=== PATIENT | female | born 1945 | race Caucasian/White ===

== ENCOUNTER 2021-02-16 12:37 | Emergency (ER) | payer MEDICARE, OTHER ==
[2021-02-16 13:53] LABS: BASOPHIL 0.6 % (0-2); EOSINOPHIL 1.8 % (0-7); HGB 8.5 g/dl (12.5-16.0); MCH 29.1 pg (25.0-31.0); MCHC 30.4 g/dL (32.0-36.0); MCV 95.9 fL (78.0-100.0); MONOCYTE 10.6 % (0-12); MPV 9.5 fL (6.0-9.5); NEUTROPHIL 65.8 % (41-80); NRBC 0; PLT 245 K/uL (150-400); RBC 2.92 M/uL (4.20-5.40); RDW 15.6 % (11.5-14.0); WBC 4.9 K/uL (4.0-10.5)
[2021-02-16 14:04] LABS: INR 1.2 (0.9-1.2); PROTHROMBIN TIME 14.4 SECONDS (11.4-13.6)
[2021-02-16 14:05] LABS: PTT 31.2 SECONDS (22.2-34.7)
[2021-02-16 14:16] LABS: PRO-BNP 84 pg/mL (<450)
[2021-02-16 14:19] LABS: BILIRUBIN NEGATIVE (NEGATIVE); BLOOD NEGATIVE Ery/uL (NEGATIVE); CLARITY CLEAR (CLEAR); COLOR YELLOW (YELLOW); GLUCOSE (U) NORMAL (NORMAL); LEUKOCYTES NEGATIVE Leu/uL (NEGATIVE); NITRITE NEGATIVE (NEGATIVE); PROTEIN NEGATIVE (NEGATIVE); SPECIFIC GRAVITY 1.025 (1.001-1.030); UROBILINOGEN 0.2 mg/dL (0.2-1.0); pH 5.5 (5.0-9.0)
[2021-02-16 14:20] LABS: ALBUMIN 3.4 g/dL (3.4-5.0); BILIRUBIN - TOTAL 0.2 mg/dL (0.2-1.0); BUN/CREAT RATIO (CALC) 21.3 RATIO; CREATININE 0.89 mg/dL (0.51-0.95); GLOBULIN (CALCULATION) 3.5 g/dL; POTASSIUM 4.8 mmol/L (3.5-5.1); TOTAL PROTEIN 6.9 g/dL (6.4-8.2)
[2021-02-16 14:28] LABS: LACTIC ACID 2.1 mmol/L (0.4-1.9)
[2021-02-16] MEDS ORDERED: DIAZEPAM 5MG TAB5 MG PO (16:07)
== END 2021-02-16 16:18 | disposition home or self-care (01) ==
LOC: FER 12:37
PROVIDERS: Emergency Medicine
DX: D64.9 Anemia, unspecified (principal); R05 Cough; R10.31 Right lower quadrant pain; R10.32 Left lower quadrant pain; Z79.01 Long term (current) use of anticoagulants; Z86.711 Personal history of pulmonary embolism; Z85.42 Personal history of malignant neoplasm of other parts of uterus; Z85.3 Personal history of malignant neoplasm of breast; Z92.3 Personal history of irradiation; Z79.899 Other long term (current) drug therapy; Z88.8 Allergy status to other drugs, medicaments and biological substances
CPT/HCPCS: 36415; 71045; 80053; 81003; 82270; 83605; 83880; 84484; 85025; 85610; 85730; 86850; 86900; 86901; 93005

== ENCOUNTER 2021-04-13 16:03 | Emergency (ER) | payer MEDICARE, OTHER ==
[~2021-04-13 16:03] MED LIST: DIAZEPAM 5MG TAB5 MG PO
[2021-04-13 17:23] LABS: BASOPHIL 0.4 % (0-2); EOSINOPHIL 1.6 % (0-7); HCT 22.6 % (37.0-47.0); HGB 6.6 g/dl (12.5-16.0); LYMPHOCYTE 13.1 % (15-48); MCH 27.3 pg (25.0-31.0); MCHC 29.2 g/dL (32.0-36.0); MCV 93.4 fL (78.0-100.0); MONOCYTE 7.8 % (0-12); NEUTROPHIL 76.4 % (41-80); NRBC 0; PLT 249 K/uL (150-400); RBC 2.42 M/uL (4.20-5.40); RDW 16.1 % (11.5-14.0); WBC 8.4 K/uL (4.0-10.5)
[2021-04-13 17:32] LABS: IRON % SATURATION 3.5 %SAT (20-50)
[2021-04-13 17:39] LABS: BILIRUBIN - TOTAL 0.1 mg/dL (0.2-1.0); BUN/CREAT RATIO (CALC) 23.9 RATIO; CREATININE 0.92 mg/dL (0.51-0.95); GLOBULIN (CALCULATION) 3.5 g/dL; POTASSIUM 4.5 mmol/L (3.5-5.1); TOTAL PROTEIN 6.5 g/dL (6.4-8.2)
== END 2021-04-14 00:45 | disposition home or self-care (01) ==
LOC: FER 16:03
PROVIDERS: Emergency Medicine
DX: D64.9 Anemia, unspecified (principal); E11.9 Type 2 diabetes mellitus without complications; Z86.711 Personal history of pulmonary embolism; Z88.8 Allergy status to other drugs, medicaments and biological substances
CPT/HCPCS: 36415; 36430; 80053; 83540; 83550; 85025; 86850; 86900; 86901; 86922; J7050; P9016

== ENCOUNTER 2021-07-01 20:18 | Emergency (ER) | payer MEDICARE, OTHER ==
[2021-07-02 00:19] LABS: BASOPHIL 0.3 % (0-2); EOSINOPHIL 2.1 % (0-7); HCT 17.6 % (37.0-47.0); MCH 27.6 pg (25.0-31.0); MCHC 28.4 g/dL (32.0-36.0); MCV 97.2 fL (78.0-100.0); MONOCYTE 9.2 % (0-12); MPV 10.6 fL (6.0-9.5); NEUTROPHIL 70.1 % (41-80); PLT 211 K/uL (150-400); RBC 1.81 M/uL (4.20-5.40); RDW 19.4 % (11.5-14.0); WBC 6.1 K/uL (4.0-10.5)
[2021-07-02 00:23] LABS: BILIRUBIN NEGATIVE (NEGATIVE); BLOOD NEGATIVE Ery/uL (NEGATIVE); CLARITY CLEAR (CLEAR); COLOR YELLOW (YELLOW); GLUCOSE (U) NORMAL (NORMAL); LEUKOCYTES NEGATIVE Leu/uL (NEGATIVE); NITRITE NEGATIVE (NEGATIVE); PROTEIN NEGATIVE (NEGATIVE); SPECIFIC GRAVITY <=1.005 (1.001-1.030); UROBILINOGEN 0.2 mg/dL (0.2-1.0); pH 5.5 (5.0-9.0)
[2021-07-02 00:30] LABS: ALBUMIN 2.9 g/dL (3.4-5.0); BILIRUBIN - TOTAL 0.1 mg/dL (0.2-1.0); BUN/CREAT RATIO (CALC) 16.3 RATIO; CREATININE 1.04 mg/dL (0.51-0.95); GLOBULIN (CALCULATION) 2.9 g/dL; POTASSIUM 4.5 mmol/L (3.5-5.1); TOTAL PROTEIN 5.8 g/dL (6.4-8.2)
[2021-07-02 00:50] LABS: RETICULOCYTE COUNT 5.7 % (1.0-2.0)
[2021-07-02 00:54] LABS: IRON % SATURATION 91.3 %SAT (20-50)
== END 2021-07-02 03:45 | disposition home or self-care (01) ==
LOC: FER 20:18
PROVIDERS: Emergency Medicine
DX: D64.9 Anemia, unspecified (principal); Z88.8 Allergy status to other drugs, medicaments and biological substances; Z88.5 Allergy status to narcotic agent; Z20.822 Contact with and (suspected) exposure to COVID-19
CPT/HCPCS: 36415; 36430; 80053; 81003; 83540; 83550; 85025; 86850; 86900; 86901; 86922; J7050; P9016; U0002